=== PATIENT | female | born 1990 | race Caucasian/White ===

== ENCOUNTER 2020-11-13 09:04 | Emergency (ER) | payer OTHER ==
[~2020-11-13] VITALS: Ht 172.7 cm; Wt 86.4 kg
[~2020-11-13 09:04] MED LIST: ELIQ5TAB PO; FERR325T81 PO
[2020-11-13] MEDS ORDERED: ACETAMINOPHEN 500 MG TAB PO ONE (09:40)
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
[2020-11-13 10:30] VITALS: BP 137/90
== END 2020-11-13 10:42 | disposition home or self-care (01) ==
LOC: EDBD 09:04 → M ED 09:04
DX: Z04.1 Encounter for examination and observation following transport accident (principal); S10.83XA Contusion of other specified part of neck, initial encounter; S50.02XA Contusion of left elbow, initial encounter; V49.40XA Driver injured in collision with unspecified motor vehicles in traffic accident, initial encounter; Y92.414 Local residential or business street as the place of occurrence of the external cause; Y93.89 Activity, other specified; Y99.8 Other external cause status; Z79.01 Long term (current) use of anticoagulants; Z79.899 Other long term (current) drug therapy

== ENCOUNTER → 2022-03-17 | Outpatient (REF) | payer BC, OTHER ==
[~2022-03-17] MED LIST changes: +LOVE1INJ SC; +NOXI1TAB PO; +PRENTAB53 PO
== END ==
LOC: M LAB REF 16:34
PROVIDERS: ATTEND Nurse Practitioner Family
DX: J02.9 Acute pharyngitis, unspecified (principal)

== ENCOUNTER 2022-05-25 14:46 | Emergency (ER) | payer BC, OTHER ==
[~2022-05-25] VITALS: Ht 172.7 cm; Wt 96.0 kg
[2022-05-25 14:47] VITALS: BP 131/81
[2022-05-25] MEDS ORDERED: NS 1,000 ML IV ONE (17:45)
[2022-05-25 18:07] LABS: BASO % 0.3 % (0.0-1.0); EOS # 0.1 10^3/uL (0.0-0.5); EOS % 0.8 % (0.0-3.0); HEMATOCRIT 44.9 % (36.0-47.0); HEMOGLOBIN 14.3 g/dl (12.0-15.5); LYMPH # 3.2 10^3/uL (1.5-5.0); LYMPH % 26.3 % (24.0-44.0); MEAN CORPUSCULAR HEMOGLOBIN 26.8 pg (27.0-33.0); MEAN CORPUSCULAR HGB CONC 31.8 g/dl (32.0-36.5); MEAN CORPUSCULAR VOLUME 84.1 fl (80.0-96.0); MONO # 0.5 10^3/uL (0.0-0.8); MONO % 4.5 % (2.0-8.0); NEUTROPHILS # 8.1 10^3/uL (1.5-8.5); NEUTROPHILS % 67.6 % (36.0-66.0); PLATELET COUNT, AUTOMATED 330 10^3/uL (150-450); RED BLOOD COUNT 5.34 10^6/uL (4.00-5.40)
[2022-05-25 18:23] LABS: INR 0.9; PROTHROMBIN TIME 12.4 SECONDS (12.5-14.5)
[2022-05-25 18:24] LABS: PARTIAL THROMBOPLASTIN TIME 49.2 SECONDS (24.8-34.2)
[2022-05-25 19:02] LABS: ALBUMIN 4.1 G/DL (3.2-5.2); ALT/SGPT 22 U/L (7.0-40); BILIRUBIN,DIRECT < 0.1 MG/DL (<0.4); BILIRUBIN,TOTAL 0.3 MG/DL (0.3-1.2); LIPASE 19 U/L (12-53); TOTAL PROTEIN 7.1 G/DL (5.7-8.2)
[2022-05-25] MEDS ORDERED: ISOVUE-370 76% 100ML VIAL As Ordered ONE (19:10)
[2022-05-25] MEDS ORDERED: PRED20TA PO (23:14)
== END 2022-05-25 23:23 | disposition home or self-care (01) ==
LOC: M ED 14:46
DX: K52.9 Noninfective gastroenteritis and colitis, unspecified (principal); J45.909 Unspecified asthma, uncomplicated; Z86.711 Personal history of pulmonary embolism

== ENCOUNTER → 2022-06-30 | Outpatient (CLI) | payer BC ==
[~2022-06-30] MED LIST changes: +PRED20TA PO
[2022-06-30 16:30] LABS: BASO # 0.1 10^3/uL (0.0-0.2); BASO % 0.6 % (0.0-1.0); EOS # 0.1 10^3/uL (0.0-0.5); EOS % 1.2 % (0.0-3.0); HEMATOCRIT 42.8 % (36.0-47.0); HEMOGLOBIN 13.5 g/dl (12.0-15.5); LYMPH # 3.2 10^3/uL (1.5-5.0); LYMPH % 27.7 % (24.0-44.0); MEAN CORPUSCULAR HEMOGLOBIN 26.9 pg (27.0-33.0); MEAN CORPUSCULAR HGB CONC 31.5 g/dl (32.0-36.5); MEAN CORPUSCULAR VOLUME 85.4 fl (80.0-96.0); MONO # 0.6 10^3/uL (0.0-0.8); MONO % 5.3 % (2.0-8.0); NEUTROPHILS # 7.4 10^3/uL (1.5-8.5); NEUTROPHILS % 64.8 % (36.0-66.0); PLATELET COUNT, AUTOMATED 291 10^3/uL (150-450); RED BLOOD COUNT 5.01 10^6/uL (4.00-5.40); WHITE BLOOD COUNT 11.4 10^3/uL (4.0-10.0)
[2022-06-30 16:34] LABS: ALBUMIN 3.8 G/DL (3.2-5.2); ALKALINE PHOSPHATASE 69 U/L (46-116); ALT/SGPT 17 U/L (7.0-40); AST/SGOT 14 U/L (<34); BILIRUBIN,TOTAL 0.4 MG/DL (0.3-1.2); BLOOD UREA NITROGEN 15 MG/DL (9-23); C REACTIVE PROTEIN QUANTITATIV < 0.40 MG/DL (<1.0); CALCIUM LEVEL 9.2 MG/DL (8.5-10.1); CARBON DIOXIDE LEVEL 28 MMOL/L (20-31); CHLORIDE LEVEL 103 MMOL/L (98-107); CREATININE FOR GFR 0.73 MG/DL (0.55-1.30); GLOMERULAR FILTRATION RATE > 60.0 (>60); GLUCOSE, FASTING 84 MG/DL (60-100); POTASSIUM SERUM 4.3 MMOL/L (3.5-5.1); SODIUM LEVEL 139 MMOL/L (136-145); TOTAL PROTEIN 6.6 G/DL (5.7-8.2)
== END ==
LOC: M WUC 14:23
PROVIDERS: ATTEND Nurse Practitioner Family
DX: K52.9 Noninfective gastroenteritis and colitis, unspecified (principal); K92.1 Melena

== ENCOUNTER → 2022-07-07 | Outpatient (CLI) | payer BC | LOC: M ADAMS 15:32 | PROVIDERS: ATTEND Nurse Practitioner Family | DX: M25.561 Pain in right knee (principal) ==

== ENCOUNTER → 2022-07-18 | Outpatient (REF) | payer BC | LOC: M LAB REF 17:04 | PROVIDERS: ATTEND Registered Nurse | DX: J02.9 Acute pharyngitis, unspecified (principal) ==

== ENCOUNTER → 2022-07-18 | Outpatient (REF) | payer BC | LOC: M WUC 20:08 | PROVIDERS: ATTEND Physician Assistant | DX: J06.9 Acute upper respiratory infection, unspecified (principal) ==

== ENCOUNTER → 2022-08-01 | Outpatient (REF) | payer BC ==
[2022-08-01 16:50] LABS: BASO # 0.1 10^3/uL (0.0-0.2); BASO % 0.3 % (0.0-1.0); EOS # 0.3 10^3/uL (0.0-0.5); EOS % 1.7 % (0.0-3.0); HEMATOCRIT 43.6 % (36.0-47.0); HEMOGLOBIN 13.5 g/dl (12.0-15.5); LYMPH # 2.2 10^3/uL (1.5-5.0); LYMPH % 14.1 % (24.0-44.0); MEAN CORPUSCULAR HEMOGLOBIN 26.8 pg (27.0-33.0); MEAN CORPUSCULAR VOLUME 86.7 fl (80.0-96.0); MONO # 0.8 10^3/uL (0.0-0.8); MONO % 5.4 % (2.0-8.0); NEUTROPHILS # 11.8 10^3/uL (1.5-8.5); NEUTROPHILS % 77.6 % (36.0-66.0); PLATELET COUNT, AUTOMATED 278 10^3/uL (150-450); RED BLOOD COUNT 5.03 10^6/uL (4.00-5.40); WHITE BLOOD COUNT 15.2 10^3/uL (4.0-10.0)
[2022-08-03 16:09] LABS: EBV AB TO NUCLEAR ANTIGEN >600.0 U/mL (0.0-17.9); EBV VIRAL CAPSID AG IgG >600.0 U/mL (0.0-17.9); EBV VIRAL CAPSID AG IgM <36.0 U/mL (0.0-35.9)
== END ==
LOC: M LABDRWAD 16:17
PROVIDERS: ATTEND Nurse Practitioner Family
DX: R06.02 Shortness of breath (principal); J02.9 Acute pharyngitis, unspecified

== ENCOUNTER → 2023-02-09 | Outpatient (REF) | payer BC ==
[~2023-02-09] MED LIST changes: +ALBU8.5H
== END ==
LOC: M LABDRWAD 17:18
PROVIDERS: ATTEND Nurse Practitioner Family
DX: D68.61 Antiphospholipid syndrome (principal)

== ENCOUNTER 2023-06-18 14:24 | Emergency (ER) | payer BC ==
[~2023-06-18] VITALS: Ht 172.7 cm; Wt 89.4 kg
[2023-06-18] MEDS ORDERED: HYDR200T46 (14:41)
[2023-06-18 15:49] LABS: BASO % 0.3 % (0.0-1.0); EOS % 0.4 % (0.0-3.0); HEMATOCRIT 44.1 % (36.0-47.0); HEMOGLOBIN 14.3 g/dl (12.0-15.5); LYMPH # 1.1 10^3/uL (1.5-5.0); LYMPH % 11.1 % (24.0-44.0); MEAN CORPUSCULAR HGB CONC 32.4 g/dl (32.0-36.5); MEAN CORPUSCULAR VOLUME 83.2 fl (80.0-96.0); MONO # 0.5 10^3/uL (0.0-0.8); MONO % 4.7 % (2.0-8.0); NEUTROPHILS % 83.1 % (36.0-66.0); PLATELET COUNT, AUTOMATED 241 10^3/uL (150-450); WHITE BLOOD COUNT 9.6 10^3/uL (4.0-10.0)
[2023-06-18] MEDS ORDERED: NS 1,000 ML IV SCH (15:55)
[2023-06-18 16:08] LABS: LIPASE 20 U/L (12-53)
[2023-06-18 16:10] LABS: ALBUMIN 3.9 G/DL (3.2-5.2); ALKALINE PHOSPHATASE 49 U/L (46-116); ALT/SGPT 14 U/L (7.0-40); AST/SGOT < 8 U/L (<34); BILIRUBIN,DIRECT 0.2 MG/DL (<0.4); BILIRUBIN,TOTAL 0.5 MG/DL (0.3-1.2); TOTAL PROTEIN 6.8 G/DL (5.7-8.2)
[2023-06-18] MEDS ORDERED: PANTOPRAZOLE 40MG VIAL IV ONE (16:40)
[2023-06-18] MEDS ORDERED: NS 1,000 ML IV ONE (16:40)
[2023-06-18] MEDS ORDERED: ISOVUE-370 76% 100ML VIAL As Ordered ONE (16:45)
[2023-06-18 17:14] VITALS: TEMP 97.5
[2023-06-18] MEDS ORDERED: MAALOX 30 ML SUSP *UDC PO ONE (17:55)
[2023-06-18 18:19] VITALS: BP_DIAS 78
[2023-06-18 18:52] VITALS: BP_SYST 69; O2SAT 99
[2023-06-18] MEDS ORDERED: PRED20TA PO (18:55)
[2023-06-18] MEDS ORDERED: PROM25TA12 PO (18:55)
== END 2023-06-18 19:14 | disposition home or self-care (01) ==
LOC: M ED 14:24
DX: K52.9 Noninfective gastroenteritis and colitis, unspecified (principal); Z79.899 Other long term (current) drug therapy; Z79.52 Long term (current) use of systemic steroids
CPT/HCPCS: 71275; 74177; 80047; 80076; 81001; 83605; 83690; 84702; 85025; 87086; 96361; 96374; 99284; C9113; Q9967